=== PATIENT | female | born 1975 | race Caucasian/White ===

== ENCOUNTER 2016-09-25 18:35 | Emergency (ER) | payer OTHER ==
[~2016-09-25] VITALS: Ht 157.5 cm; Wt 89.2 kg
[~2016-09-25 18:35] MED LIST: ADDERALL20 MG PO; ATORVASTATIN CA20 MG PO; BACTRIM,SEPT1 TABLET PO; CLEOCIN300 MG PO; DEPAKOTE500 MG PO; FENOFIBRATE; FENOFIBRATE120 MG PO; FENOFIBRATE50 MG PO; FLEXERIL10 MG PO; GEODON40 MG PO; GLIPIZIDE10 MG PO; GLUCOPHAGE500 MG PO; LAMICTAL25 MG PO; METFORMIN HCL1000 MG PO; MOTRIN600 MG PO; MOTRIN800 MG PO; PRAVASTATIN; ULTRAM50 MG PO; VENTOLIN HFA18 GM IH; WELLBUTRIN SR200 MG PO
[2016-09-25] MEDS ORDERED: FLEXERIL10 MG PO (23:57)
[2016-09-25] MEDS ORDERED: PERCOCET 5/31 TABLET PO (23:57)
[2016-09-26 00:06] VITALS: BP 142/90
== END 2016-09-26 00:09 | disposition home or self-care (01) ==
LOC: EME 18:35
DX: S16.1XXA Strain of muscle, fascia and tendon at neck level, initial encounter (principal); S09.90XA Unspecified injury of head, initial encounter; Y04.8XXA Assault by other bodily force, initial encounter; Y07.499 Other family member, perpetrator of maltreatment and neglect
CPT/HCPCS: 70450; 72125; 99281; 99283

== ENCOUNTER 2017-06-16 12:51 | Emergency (ER) | payer OTHER ==
[~2017-06-16] VITALS: Ht 157.5 cm; Wt 92.8 kg
[~2017-06-16 12:51] MED LIST changes: +PERCOCET 5/31 TABLET PO
[2017-06-16] MEDS ORDERED: VALTREX1000 MG PO (14:49)
[2017-06-16] MEDS ORDERED: PREDNISONE20 MG PO (14:49)
[2017-06-16 15:16] VITALS: BP 110/80
== END 2017-06-16 15:17 | disposition home or self-care (01) ==
LOC: EME 12:51
DX: B02.9 Zoster without complications (principal); K21.9 Gastro-esophageal reflux disease without esophagitis; F41.9 Anxiety disorder, unspecified; E78.5 Hyperlipidemia, unspecified; E11.9 Type 2 diabetes mellitus without complications; F32.9 Major depressive disorder, single episode, unspecified; Z79.84 Long term (current) use of oral hypoglycemic drugs; F17.200 Nicotine dependence, unspecified, uncomplicated
CPT/HCPCS: 99281; 99284; J7512